=== PATIENT | female | born 2000 | race Caucasian/White ===

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

== ENCOUNTER 2019-03-15 06:41 | Emergency (ER) | payer OTHER ==
[~2019-03-15] VITALS: Ht 165.1 cm; Wt 113.6 kg
[2019-03-15 06:48] VITALS: BP 125/82; TEMP 98.2
[2019-03-15 07:59] LABS: COLLECTION METHOD CLEAN CATCH
[2019-03-15 08:03] LABS: BASO % 0.3 % (0.0-2.0); EOS # 0.1 (0.0-0.7); EOS % 0.7 % (0-4.0); GRAN % 82.7 % (42.2-75.2); HEMATOCRIT 44.8 % (35.0-45.0); HEMOGLOBIN 15.9 g/dl (12.0-15.0); LYMPH # 1.1 (1.2-3.4); LYMPH % 10.4 % (20.0-51.0); MEAN CELL VOLUME 90 fl (80.0-95.0); MEAN CORPUSCULAR HEMOGLOBIN 32 pg (26.0-32.0); MEAN CORPUSCULAR HGB CONC 36 g/dl (33.0-37.0); MEAN PLATELET VOLUME 10.1 fl (7.4-10.4); MONO # 0.6 (0.1-0.6); MONO % 5.5 % (1.7-9.3); PLATELET COUNT 293 K/mm3 (130-400); REDCELL DISTRIBUTION WIDTH-CV 12.2 % (11.5-14.5)
[2019-03-15 08:14] LABS: MUCOUS Present /lpf; PH 6 (5-8); URINE APPEARANCE Clear; URINE BACTERIA None Seen /hpf; URINE BILIRUBIN Negative (NEGATIVE); URINE BLOOD Negative (NEGATIVE); URINE COLOR Amber; URINE GLUCOSE Negative (NEGATIVE); URINE KETONE 2+ (NEGATIVE); URINE LEUKOCYTE ESTERASE Trace (NEGATIVE); URINE NITRATE Negative (NEGATIVE); URINE PROTEIN(semi-quant) Negative (NEGATIVE); URINE UROBILINOGEN Negative (NEGATIVE)
[2019-03-15 08:35] LABS: ALBUMIN 4.8 gm/dL (3.5-5.0); BILIRUBIN,TOTAL 1.2 mg/dL (0.0-1.0); CALCIUM 9.6 mg/dL (8.4-10.2); CREATININE, serum 0.69 (0.52-1.25); POTASSIUM 3.7 mmol/L (3.4-5.0); TOTAL PROTEIN 8.2 gm/dL (6.4-8.2)
[2019-03-15] MEDS ORDERED: FLEXERIL 1010 MG/TAB PO (08:43)
[2019-03-15] MEDS ORDERED: NORCO 325 MG-51 TAB PO (08:44)
[2019-03-15 09:26] VITALS: PULSE 76
== END 2019-03-15 09:37 | disposition home or self-care (01) ==
LOC: COL.ER 06:41
PROVIDERS: Emergency Medicine
DX: S16.1XXA Strain of muscle, fascia and tendon at neck level, initial encounter (principal); R40.2412 Glasgow coma scale score 13-15, at arrival to emergency department; V43.52XA Car driver injured in collision with other type car in traffic accident, initial encounter
CPT/HCPCS: J3010; J7030

== ENCOUNTER 2021-01-23 18:10 | Emergency (ER) | payer BC ==
[~2021-01-23] VITALS: Ht 172.7 cm; Wt 95.5 kg
[~2021-01-23 18:10] MED LIST changes: +FLEXERIL 1010 MG/TAB PO; +NORCO 325 MG-51 TAB PO
[2021-01-23 18:19] VITALS: TEMP 98.4
[2021-01-23] MEDS ORDERED: INVEGA3 MG PO (18:37)
[2021-01-23] MEDS ORDERED: CYMBALTA 60MG60 MG PO (18:38)
[2021-01-23 18:59] VITALS: BP 138/106; PULSE 93
--- NOTE | 2021-01-26 13:54 | NUR ---
Cell [employer] followed up with patient about establishing local services following ED visit on 01/23/21. SW contacted patient (ph#[phone]) who advised she moved from [place] about two weeks ago after she was kicked out of her apartment there. Patient moved to [place] to live with her mother, Dilcia Moss (ph#[phone]). Patient is interested in setting up primary care and mental health services locally. Patient is agreeable to have these services set up at [facility] and [facility]. Patient is agreeable to the [facility] clinic in [place] as they can provide an appointment quicker than the [place] office. Patient states she has a vehicle and traveling to is not an issue. Patient reports her current insurance, which patient reports is like Medicaid, but in [place] will be at the end of the month. Patient is agreeable to have financial counseling consulted. Patient is interested in applying for disability and food assistance. PHILIP provided contacte information for the [employer] as well as the local Social Security office. PHILIP contacted [employer] and provided patient's contact information. PHILIP then contacted [facility] and gave referral. [facility] to get in contact with patient to set up services including medication management. PHILIP then contacted Brianna at the [facility] and provided patient information. Brianna to contact patient to set up initial appointment. Brianna advised she would also make referral to [facility]. PHILIP contacted patient again and updated her about the above referrals.
== END 2021-01-23 18:59 | disposition home or self-care (01) ==
LOC: COL.ER 18:10
DX: Z76.0 Encounter for issue of repeat prescription (principal); F25.9 Schizoaffective disorder, unspecified; F31.9 Bipolar disorder, unspecified; Z79.899 Other long term (current) drug therapy

== ENCOUNTER 2021-11-06 17:43 | Emergency (ER) | payer SELFPAY ==
[~2021-11-06] VITALS: Ht 167.6 cm; Wt 100.0 kg
[~2021-11-06 17:43] MED LIST changes: +CYMBALTA 60MG60 MG PO; +INVEGA3 MG PO
[2021-11-06 17:57] VITALS: TEMP 98.1
[2021-11-06 18:04] LABS: COLLECTION METHOD CLEAN CATCH
[2021-11-06 18:13] LABS: PH 6 (5-8); SQUAMOUS EPITHELIAL 0-2 /hpf (0-10); URINE APPEARANCE Hazy (CLEAR/HAZY); URINE BACTERIA Rare /hpf (NONE SEEN); URINE BLOOD 3+ (NEGATIVE); URINE COLOR Straw (YELLOW); URINE GLUCOSE Negative (NEGATIVE); URINE KETONE Negative (NEGATIVE); URINE NITRATE Negative (NEGATIVE); URINE PROTEIN(semi-quant) Negative (NEGATIVE); URINE UROBILINOGEN Negative (NEGATIVE)
[2021-11-06] MEDS ORDERED: CEFTIN500 MG PO (19:17)
[2021-11-06 19:25] VITALS: BP 146/88; PULSE 95
== END 2021-11-06 19:25 | disposition home or self-care (01) ==
LOC: COL.ER 17:43
PROVIDERS: Nurse Practitioner
DX: N39.0 Urinary tract infection, site not specified (principal); Z91.040 Latex allergy status
CPT/HCPCS: J0696

== ENCOUNTER 2022-02-11 10:49 | Emergency (ER) | payer SELFPAY ==
[~2022-02-11] VITALS: Ht 167.6 cm; Wt 104.5 kg
[~2022-02-11 10:49] MED LIST changes: +CEFTIN500 MG PO
[2022-02-11 11:05] VITALS: BP 126/85; TEMP 97.7
[2022-02-11] MEDS ORDERED: MEDROL 4MG DOSPA4 MG PO (12:46)
[2022-02-11] MEDS ORDERED: FLEXERIL 1010 MG/TAB PO (12:46)
[2022-02-11 13:06] VITALS: PULSE 69
== END 2022-02-11 13:07 | disposition home or self-care (01) ==
LOC: COL.ER 10:49
DX: M54.50 Low back pain, unspecified (principal); Z91.040 Latex allergy status; Z28.310 Unvaccinated for COVID-19
CPT/HCPCS: J1885; J2360